=== PATIENT | male | born 1960 | race Caucasian/White ===

== ENCOUNTER → 2018-11-14 13:40 | Outpatient (CLI) | payer OTHER, MEDICAID, SELFPAY ==
--- NOTE | 2018-11-14 | DI.ECHO.S_ITS ---
[facility]+ [facility] +---------+ : : [address] : : : : [id number] : : : : Phone: [phone]+ Echocardiogram Report + + :Name: STEPHAN RAMÍREZ Study Date: 11/14/2018 Height: 66 in : :[facility] Weight: 154 lb : : Gender: Male BSA: 1.8 m2 : :: 1960 Age: 58 yrs BP: 122/70 mmHg: :Reason For Study: CAD : : Performed By: Salvador Mills : :Referring: HORTENSIA JAY N : + + Interpretation Summary The left ventricle is normal in size. Left ventricular systolic function is normal. The ejection fraction is estimated to be 60-65%. There is basal inferior wall hypokinesis. Diastolic parameters suggest probable normal left ventricular diastolic function and normal filling pressures. LV ejection fraction has improved since 07/2016. The right ventricle is normal in size and function. Pulmonary artery pressures cannot be estimated because of the lack of a measurable TR jet velocity. Both atria are normal in size. There is mild mitral regurgitation. There is no other significant valvular heart disease. The aortic root is normal size. Incidental finding of abdominal ascites is noted and is new since prior study. Procedure: A two-dimensional transthoracic echocardiogram with color flow and Doppler was performed. The study quality was technically good. Comparison is made with the echocardiogram of 08/13/2016. The subcostal views were not obtained due to abdominal distention/cirrhosis. The patient was in normal sinus rhythm during the exam. Left Ventricle: The left ventricle is normal in size. There is normal left ventricular wall thickness. Left ventricular systolic function is normal. The ejection fraction is estimated to be 60-65%. There is basal inferior wall hypokinesis. Diastolic parameters suggest probable normal left ventricular diastolic function and normal filling pressures. Right Ventricle: The right ventricle is normal in size and function. Atria: Both atria are normal in size. The interatrial septum is intact with no evidence for an atrial septal defect. Mitral Valve: The mitral valve is normal in structure and function. There is mild mitral regurgitation. Aortic Valve: The aortic valve is trileaflet. The aortic valve opens well. No aortic regurgitation is present. Tricuspid Valve: The tricuspid valve is normal in structure and function. No tricuspid regurgitation. Pulmonary artery pressures cannot be estimated because of the lack of a measurable TR jet velocity. Pulmonic Valve: The pulmonic valve is normal in structure and function. There is trace pulmonic regurgitation. There is no other significant valvular heart disease. Great Vessels: The aortic root is normal size. The dimensions of the ascending aorta are normal. The pulmonary artery is normal size. The inferior vena cava was not visualized. Pericardium/ Pleura There is no pericardial effusion. There is no pleural effusion. Incidental finding of abdominal ascites is noted. MMode/2D Measurements & Calculations LVIDd: 5.3 cm LVOT diam: 2.1 cm LVIDs: 3.8 cm Ao root diam: 2.9 cm FS: 26.8 % Aortic Jxn: 2.3 cm EPSS: 0.92 cm asc Aorta Diam: 2.7 cm IVSd: 0.93 cm LVPWd: 0.84 cm LV johnson. diameter/BSA (cm/m^2): 2.9 LV sys. diameter/BSA (cm/m^2): 2.2 LA dimension: 4.2 cm RA long axis: 4.3 cm LA A2 area: 17.7 cm2 RA area: 13.9 cm2 LA A4 area: 19.9 cm2 RA vol: 38.0 ml LA length (vol): 5.3 cm RA : 21.2 ml/m2 LA vol: 55.9 ml LA vol index: 31.2 ml/m2 Doppler Measurements & Calculations Ao V2 max: 113.1 cm/sec LVOT Max Magdy: 86.7 cm/sec Ao V2 mean: 81.6 cm/sec LV V1 max P.0 mmHg Ao max P.1 mmHg LV V1 VTI: 19.1 cm Ao mean P.9 mmHg SCAR(I,D): 2.9 cm2 Ao V2 VTI: 23.5 cm SCAR(V,D): 2.7 cm2 sev ratio: 0.81 SCAR indexed to BSA (cm^2/m^2): 1.6 MV E max magdy: 101.7 cm/sec PA V2 max: 88.9 cm/sec MV A max magdy: 82.3 cm/sec PA V2 mean: 67.3 cm/sec MV E/A: 1.2 PA mean P.9 mmHg Med Peak E' Magdy: 6.7 cm/sec PA pr(Accel): 29.1 mmHg E/E' med: 15.2 PA Accel Time: 0.11 sec Lat Peak E' Magdy: 7.8 cm/sec E/E' lat: 13.0 E/e' average: 14.1 MV dec time: 0.13 sec SV(LVOT): 67.7 ml Reading Physician:04:13 PM
--- NOTE | 2018-11-14 | DI.NM.S_ITS ---
PROCEDURE: NM BHAVIK PERF SPECT R&S PHARM Rest and pharmacological stress myocardial perfusion SPECT with gated imaging and ejection fraction RADIOPHARMACEUTICAL: 26.6 mCi Tc-99m tetrafosmin IV at rest and 26.0 mCi Tc-99m tetrafosmin IV at peak effect of pharmacological stress. Gqm-sks-plgidmur was performed. INDICATIONS: CORONARY ARTERY DISEASE TECHNIQUE: Radiopharmaceutical was injected at peak stress test, and also at rest. SPECT images were obtained. SPECT myocardial perfusion images were displayed in short axis, horizontal long axis, and vertical long axis views. Gated images were reviewed using [employer] software. COMPARISON: None. CARDIAC STRESS: A pharmacologic stress test was performed under the supervision of an attending staff, using an infusion of lexiscan 0.4mg IV X1. Hemodynamic data: There is normal blood pressure and heart rate response to pharmacologic stress. Symptoms: The patient denied anginal chest pain. Aminophylline: none EKG: No diagnostic changes of ischemia; no ectopy. FINDINGS: Raw data: There is good myocardial uptake of radiotracer. No significant motion artifacts. Ummk-rh-jwwrf ratio is 0.38 (normal is less than 0.38 for tetrafosmin tracer). Left ventricle function: Gated images demonstrate normal left ventricular wall thickening. No segmental wall motion abnormalities. No transient ischemic dilation; TID is 0.88 (normal less than 1.3). Left ventricle resting end diastolic volume is 110 mL. Left ventricle stress ejection fraction is 64%; normal range is above 45%. Myocardial perfusion: There is normal distribution of activity in the right and left ventricular myocardium. No fixed or reversible perfusion defects. IMPRESSION: Low risk, normal pharmaceutical nuclear stress test. 1) No perfusion evidence of ischemia or infarction. 2) Normal left ventricular size, wall motion, and systolic function (EF post stress 64%). 3) No angina during the study. 4) No prior nuclear stress test available for comparison. Dictated by: Ellen Conway MD on 11/18/2018 at 15:34 Approved by: Ellen Conway MD on 11/18/2018 at 15:36
--- NOTE | 2018-11-18 13:35 | P.PCN_ITS ---
Cardiac Stress Test Report Referral & Results Date Patient Seen: 11/18/18 Time Patient Seen: 13:15 Requesting provider: Av Bridges Indication: CAD Rest ECG: NSR Procedure Note: Switched to walking Lexiscan given the patient's multiple comorbidities and apparent instability on his feet. After both written and verbal informed consent the patient had an IV started by the diagnostic imaging RN and then was hooked up to the treadmill monitoring system. The patient was placed on the treadmill at 1 mile an hour with no elevation and was then injected with the [place] scan material. The Cardiolite was then immediately administered. The patient spent an additional 2-3 minutes on the treadmill before being returned to the [facility] in the supine position. The patient had a normal response to all infused materials. Normal sinus rhythm throughout. Patient short of breath with minimal exertion. Smells of alcohol. Impression: Successful [place] protocol. Will await perfusion imaging. Please note: Actual ECG tracings can be found in the PACS system.
== END ==
PROVIDERS: Visit Provider Nurse Practitioner
DX: I25.10 Atherosclerotic heart disease of native coronary artery without angina pectoris (principal); I34.0 Nonrheumatic mitral (valve) insufficiency; R18.8 Other ascites
CPT/HCPCS: 78452; 93016; 93017; 93018; 93306; A9502; J2785

== ENCOUNTER 2019-11-30 16:16 | Emergency (ER) | payer OTHER, MEDICAID, SELFPAY ==
[2019-11-30 16:20] VITALS: BP 155/72; PULSE 74; RESP 18; TEMP 36.7; O2SAT 100
--- NOTE | 2019-11-30 16:34 | PC.NURSE ---
As I was leaving the room the patient stated i'd give anything for a couple of pain pills
--- NOTE | 2019-11-30 16:35 | ED_ITS ---
HPI - Chest Pain <GABE Victoria - Last Filed: 11/30/19 20:51> General Chief Complaint: Chest Pain Stated Complaint: heart problems Time Seen by Provider: 11/30/19 16:33 History of Present Illness HPI narrative: 59yo male with a history of PA, chronic pain currently taking ?pain pills, chronic alcohol use (6-7 cans of jae beers a day), presents to the emergency department for chest pain yesterday. Patient states he started thinking about his dog that last January, and he felt really side. A started developing left-sided chest pain with a mild shortness of breath at that time. He states the pain went away when he relaxed and calm down. He called his doctor to Tylenol but is chest pain and was referred to the ED yesterday. Patient states he was busy and decided to come today. He denies any symptoms at this time. Denies chest pain at this time, cough, fevers, shortness of breath, nausea, vomiting, diarrhea, dizziness, or any other concerns. Related Data Home Medications Medication Instructions Recorded Confirmed albuterol sulfate [Proventil HFA] 2 puff INH #8.5 gm 03/09/12 gabapentin #0 03/09/12 Allergies Allergy/AdvReac Type Severity Reaction Status Date / Time tramadol [TRAMADOL] Allergy Unknown Unverified 08/04/17 12:23 Review of Systems <GABE Victoria - Last Filed: 11/30/19 20:51> Review of Systems Narrative: REVIEW OF SYSTEMS: GENERAL: Denies fever or chills. HENT: No head trauma. EYES: No vision changes. CARDIOVASCULAR: Reports chest pain, see HPI. RESPIRATORY: No cough. GASTROINTESTINAL: No nausea, vomiting, diarrhea, or constipation. GENITOURINARY: No flank pain or dysuria. MUSCULOSKELETAL: No pain. INTEGUMENTARY: No rash, lesions, or pruritus. NEURO: No numbness or tingling. PSYCH: No behavior or mood changes. Patient History <GABE Victoria - Last Filed: 11/30/19 20:51> Social History Smoking Status: Current every day smoker Exam <GABE Victoria - Last Filed: 11/30/19 20:51> Initial Vital Signs Initial Vital Signs: Vital Signs Temperature 98.0 F 11/30/19 16:20 Pulse Rate 74 11/30/19 16:20 Respiratory Rate 18 11/30/19 16:20 Blood Pressure 155/72 H 11/30/19 16:20 Pulse Oximetry 100 11/30/19 16:20 PHYSICAL EXAMINATION: GENERAL: Disheveled, poor hygiene, poor historian. Answers questions promptly and appropriately. Vital signs noted. HENT: Normocephalic, atraumatic. Ear canals patent. Oral mucosa is pink and moist. EYES: Conjunctiva pink, sclera white, no periorbital swelling. CHEST: Normal to inspection and without deformities. CARDIOVASCULAR: S1 and S2 sounds normal. Regular rate and rhythm, no murmurs, clicks, or bruits. No pedal edema. RESPIRATORY: Normal respiratory rate, trachea midline, airway patent. No stridor, nasal flaring or accessory muscle use. Lungs are clear in all [place] without wheeze, rhonchi, or crackles. GASTROINTESTINAL: Bowel sounds normoactive. Abdomen is soft and non-tender. No organomegaly. MUSCULOSKELETAL: Normal gait and coordination. Equal tone and mass bilaterally. EXTREMITIES: CMS intact. Moves all extremities. SKIN: Warm, dry, soft, appropriate color for ethnicity. No lesions, rashes, or wounds. NEURO: Alert and Oriented X 3. Good coordination. No ataxia, or sensory deficits, or cognitive issues. PSYCH: Appropriate affect and mood. <Tika Burch DO - Last Filed: 12/01/19 07:47> Initial Vital Signs Initial Vital Signs: Vital Signs Temperature 98.0 F 11/30/19 16:20 Pulse Rate 74 11/30/19 16:20 Respiratory Rate 18 11/30/19 16:20 Blood Pressure 155/72 H 11/30/19 16:20 Pulse Oximetry 100 11/30/19 16:20 Course <GABE Victoria - Last Filed: 11/30/19 20:51> Course Course Narrative: 1720: Patient was reported to have asked a [employer] FACULTY ASSISTANT to touch her butt and reported he wanted to leave because he was hungry. Patient signed out AMA after being explained risk of per nursing. Patient continued to deny chest pain. Orders Ordered: Discontinued Medications Sodium Chloride (Normal Saline 0.9%) 1,000 mls @ 150 mls/hr IV CONT JAYA Vital Signs Vital signs: Vital Signs - 8 hr 11/30/19 16:20 Temperature 98.0 F Pulse Rate 74 Respiratory Rate 18 Blood Pressure 155/72 H Pulse Oximetry 100 <Tika Burch DO - Last Filed: 12/01/19 07:47> Orders Ordered: Discontinued Medications Sodium Chloride (Normal Saline 0.9%) 1,000 mls @ 150 mls/hr IV CONT JAYA Vital Signs Vital signs: Vital Signs - 8 hr 11/30/19 16:20 Temperature 98.0 F Pulse Rate 74 Respiratory Rate 18 Blood Pressure 155/72 H Pulse Oximetry 100 MDM - Chest Pain <GABE Victoria - Last Filed: 11/30/19 20:51> Medical Records Data Attestation: I reviewed the patient's medical records. Lab Data Attestation: I reviewed the patient's lab results. Imaging Data Chest x-ray: Radiologist's Impression: [address] [address] XRay Report Signed Patient: Neymar Santamaria#: [id number] : 1Acct:[id number] Age/Sex: 59 / MDate of Service: 11/30/19 Loc: ED Accession Number: [id number] Procedure: XR chest 1V Ordering Provider: Kassidy Wilson PROCEDURE: XR CHEST 1V INDICATIONS: chest pain TECHNIQUE: One view of the chest was acquired. COMPARISON: None. FINDINGS: Surgical changes and devices: None. Lungs and pleura: Lungs are clear. No pleural effusions or pneumothorax. Mediastinum: Mediastinal contours appear normal. Heart size is normal. Bones and chest wall: No suspicious bony lesions. Overlying soft tissues appear unremarkable. IMPRESSION: Normal for age, source of current chest pain symptoms is not seen. Dictated by: Guido Lino M.D. on 11/30/2019 at 16:57 Approved by: Guido Lino M.D. on 11/30/2019 at 16:57 ECG Data Interpretation: 1623: Sinus rhythm, rate 70, [place] interval 120, QTC 408. No ST elevation or ST depression. T-wave inversion noted in V1. No ectopy. No prior EKG for comparison. [facility] Narrative Medical decision making narrative: Patient requested to leave against medical advice prior to laboratory work. Patient signed AMA form after discussion of possible risks including . Patient was encouraged to follow up with PCP and return immediately for any new or worsening symptoms. <Tika Burch, DO - Last Filed: 12/01/19 07:47> ECG Data Attestation: I personally reviewed and interpreted this ECG as follows: Prior ECG tracings: not available for review Interpretation: Normal sinus rhythm rate 70 p.r. interval 120 QRS 90 continue QTC [address] move to his or T-wave inversions no priors to compare Discharge Plan Departure Patient Disposition: Left Without Being Seen Clinical Impression: Left against medical advice Discharge Date/Time: 11/30/19 17:15
--- NOTE | 2019-11-30 17:29 | PC.NURSE ---
JENNY Holcomb came to me about the patient saying he'd like to pinch her butt. i went to speak with patient, he said he did say it but he was just being funny and he's sorry. he then said he wanted to leave. i said that's fine and he can go but he can't speak to staff like that. he said sorry again, i asked if he'd like to stay and get his blood drawn and he no thanks, i'm hungry maybe i'll come back. i asked if he'd sign an AMA form, he agreed and got himself dressed. pt left, steady gait.
--- NOTE | 2019-11-30 17:32 | PC.NURSE ---
Pt in room stating he wants to go home. RELAY TESTER in room. Stated to RELAY TESTER if you were to bend over id pinch your butt Pt made aware of inappropriate language to staff. Pt states he is hungry and wants to leave. dr green made aware and VDC form signed. pt ambulated out of ED with steady gait.
== END 2019-11-30 17:15 | disposition left against medical advice (07) ==
PROVIDERS: Emergency Provider Nurse Practitioner
DX: R07.9 Chest pain, unspecified (principal)
CPT/HCPCS: 71045; 93005; 99283; 99284

== ENCOUNTER → 2020-02-14 09:58 | Outpatient (CLI) | payer OTHER, MEDICAID, SELFPAY ==
--- NOTE | 2020-02-14 | DI.RAD.S_ITS ---
PROCEDURE: XR KNEE RT 1TO2V INDICATIONS: RIGHT KNEE PAIN TECHNIQUE: 2 views of the knee were acquired. COMPARISON: None. FINDINGS: Bones: No fracture. Multilevel degenerative endplate sclerosis and spurring. Diffuse facet arthropathy. No definite joint space narrowing. Soft tissues: No joint effusion. No suspicious soft tissue calcifications. Scattered vascular calcifications. IMPRESSION: Mild degenerative changes. If the patient's pain or other symptoms persist, consider further evaluation with MRI Dictated by: Kenney Birmingham M.D. on 02/14/2020 at 15:34 Approved by: Kenney Birmingham M.D. on 02/14/2020 at 15:34
[2020-02-14 11:52] LABS: Add Manual Diff / Slide Review NO; Basophils Absolute Auto 100 /uL (0-100); Basophils Percent Auto 1.5 % (0-2); Eosinophils Absolute Auto 200 /uL (0-450); Eosinophils Percent Auto 3.5 % (2-4); Hematocrit 37.1 % (41-53); Hemoglobin 12.3 g/dL (13.5-17.5); Lymphocytes Absolute Auto 1800 /uL (1100-4500); Lymphocytes Percent Auto 25.8 % (25-40); Mean Corpuscular HGB Conc 33.2 % (30-36); Mean Corpuscular Hemoglobin 29.9 PG (26-34); Mean Corpuscular Volume 89.8 fL (80-100); Monocytes Absolute Auto 800 /uL (0-900); Monocytes Percent Auto 11.8 % (3-14); Neutrophils Absolute Auto 4100 /uL (1500-7000); Neutrophils Percent Auto 57.4 % (50-75); Platelet Count 131 X10^3/uL (150-400); Red Blood Cell Count 4.13 X10^6/uL (4.5-5.9); Red Cell Distribution Width 15.1 % (11.6-14.8); White Blood Cell Count 7.2 X10^3/uL (4.5-11.0)
[2020-02-14 12:22] LABS: Alanine Aminotransferase 14 IU/L (<50); Albumin 4.3 g/dL (3.5-5.0); Albumin Globulin Ratio 1.3 (1.0-2.8); Alkaline Phosphatase 133 U/L (38-126); Aspartate Aminotransferase 27 IU/L (17-59); BUN Creatinine Ratio 8.3 (6-22); Bilirubin Total 0.5 mg/dL (0.2-1.3); Blood Urea Nitrogen 8 mg/dL (9-20); Calcium 9.7 mg/dL (8.4-10.2); Carbon Dioxide 29 mmol/L (22-32); Chloride 102 mmol/L (98-107); Estimated Glomerular Filt Rate > 60.0 mL/min (>60); Globulin 3.2 g/dL (1.7-4.1); Glucose 182 mg/dL (70-100); HEMOLYSIS < 15 (0-50); Potassium 4.6 mmol/L (3.4-5.1); Sodium 138 mmol/L (137-145); Total Protein 7.5 g/dL (6.3-8.2)
== END ==
PROVIDERS: PCP Family Medicine; Referring Provider Family Medicine; Visit Provider Family Medicine
DX: N17.9 Acute kidney failure, unspecified (principal); D62 Acute posthemorrhagic anemia; M25.561 Pain in right knee
CPT/HCPCS: 36415; 73560; 80053; 85025

== ENCOUNTER → 2022-02-16 10:30 | Outpatient (CLI) | payer OTHER, MEDICAID, SELFPAY ==
--- NOTE | 2022-02-16 | DI.CT.S_ITS ---
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 Additional oblique axial 3.0 mm sections acquired through the pharynx. 3 mm thick coronal and sagittal reformats were generated. For radiation dose reduction, the following was used: automated exposure control. COMPARISON: None. FINDINGS: Image quality: Excellent. Lymph nodes: No enlarged lymph nodes seen throughout the neck. Vessels: Non-opacified vessels appear normal in caliber. Neck spaces: The oropharynx, nasopharynx, and pharynx demonstrate no mucosal lesions. The right vocal cord demonstrates a mild midline bulging without well-defined mass. Left focal cord appears unremarkable.. Glands: The parotid and submandibular glands appear normal, without stones. Thyroid gland is unremarkable . Miscellaneous: There is a soft tissue mass identified to the right of the trachea immediately to the right of midline measuring 3.7 x 3.3 cm. There is mild leftward tracheal deviation. There appears to be a 2nd more midline appearing mass posterior and inferior seen on series 2, image 47 measuring 1.8 x 1.7 cm. This mass appears to be separate from the thyroid gland and is causing mild leftward displacement of the right lobe. It is in direct approximation to the superior SVC. In addition, there are multiple predominantly subcentimeter lymph nodes within the mediastinum. However, a partially visualized likely enlarged carinal lymph node is present. It is not seen in its entirety. Visualized brain and orbits appear normal. Lung apices appear clear. Superficial soft tissues appear normal. IMPRESSION: Right supraclavicular masses extending to the mediastinum as described above. They are poorly characterized given lack of IV contrast. In addition, there is midline bulging of the right vocal cord. 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 Dictated by: Brittney Mac M.D. on 02/17/2022 at 8:33 Approved by: Brittney Mac M.D. on 02/17/2022 at 9:41
== END ==
PROVIDERS: PCP Family Medicine; Referring Provider Otolaryngology; Visit Provider Otolaryngology
DX: J38.01 Paralysis of vocal cords and larynx, unilateral (principal); R22.2 Localized swelling, mass and lump, trunk
CPT/HCPCS: 70490